=== PATIENT | male | born 1970 | race African-American/Black ===

== ENCOUNTER 2025-01-10 13:31 | Emergency (ER) | payer SELFPAY ==
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
[2025-01-10 13:33] VITALS: BP 169/93; PULSE 88; RESP 16; TEMP 36.4; O2SAT 100
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
--- OUTSIDE RECORDS SUMMARY | 2025-01-11 12:42 | XMS_ITS | Clinical Summary ---
Author Organization [facility] Address [address] [place] [address] Care Team Providers Care Lead Python Developer Name Role Phone Niki Green FIELD RADIO OPERATOR Primary Care Provider [phone] Allergies Active Allergy Reactions Criticality Noted Date Comments Seasonal Runny Nose 03/28/2024 Medications Na sulfate-K sulfate-Mg sulfate (SUPREP BOWEL PREP KIT) 17.5-3.13-1.6 GM/177ML SolutionIndicatio ns:Screening for colon cancer Take 177 mLs by mouth every 12 (twelve) hours. Per GI instructions 354 mL Active Additional Information Patient not taking.Reported on 06/28/2024 empagliflozin (JARDIANCE) 25 MG tabletIndications :Type 2 diabetes mellitus with hyperglycemia, without long-term current use of insulin ([facility]) Take 1 tablet (25 mg total) by mouth daily. 30 tablet 2 Active Additional Information Patient not taking.Reported on 06/28/2024 pravastatin (PRAVACHOL) 40 MG tabletIndications :Mixed hyperlipidemia Take 1 tablet (40 mg total) by mouth nightly at bedtime. 30 tablet 2 025 Active semaglutide (RYBELSUS) 7 MG tabletIndications :Diabetes Mellitus Take 1 tablet (7 mg total) by mouth every morning before breakfast. Indications: Diabetes 30 tablet 1 025 Active semaglutide (RYBELSUS) 3 MG tabletIndications :Diabetes Mellitus Take 1 tablet (3 mg total) by mouth every morning before breakfast. Indications: Diabetes 30 min before breakfast with a small sip of water. 30 tablet 1 025 Active metFORMIN ER (GLUCOPHAGE-XR) 500 MG 24 hr tabletIndications :Type 2 diabetes mellitus with hyperglycemia, without long-term current use of insulin (CMS/HCC HHS/HCC) Take 2 tablets by mouth twice daily 360 tablet 025 Active losartan (COZAAR) 25 MG tabletIndications :Primary hypertension Take 1 tablet by mouth once daily 30 tablet 025 Active losartan (COZAAR) 25 MG tabletIndications :Primary hypertension Take 1 tablet by mouth once daily 30 tablet 025 2024 Discontinued Active Problems Problem Noted Date Diagnosed Date Hyperkalemia 06/28/2024 Primary hypertension 03/28/2024 Type 2 diabetes mellitus wit hout complication, without long-term current use of insulin 03/28/2024 Mixed hyperlipidemia 03/28/2024 Acute gout, unspecified cause, unspecified site 03/28/2024 Resolved Problems Problem Noted Date Diagnosed Date Resolved Date Screening for colon cancer 04/10/2024 0 04/17/2024 Statin intolerance 03/29/2024 Encounters Date Type Department Care Team Description 10/16/2024 Telephone [facility] - [address] [place] [address] Stephane Bird MD Question from Last 3 Months Family History Medical History Relation Comments Arthritis Father Heart Disease Father Hypertension Father Cancer Maternal Grandmother unknown cau se at 89 Depression Mother Diabetes Mother Relation Status Comments Father Maternal Grandmother Mother Social History Tobacco Use Types Packs/Day Years Used Date Smoking Tobacco: Never Passive Smoke Exposure: Never Smokeless Tobacco: Never Tobacco Cessation:Counseling Given: No Alcohol Use Standard Drinks/Week Comments Yes 4 (1 standard drink = 0.6 oz pure alcohol) I have approximately 4 drinks a week PHQ-2 Answer Date Recorded Patient Health Questionnaire-2 Score 0 04/07/2024 Sex and Gender Information Value Date Recorded Sex Assigned at Male 06/28/2024 8:31 AM CDT Legal Sex Male 4:04 PM INFLATED BALL MOLDER Gender Identity Male 06/28/2024 8:31 AM CDT Sexual Orientation Not on file Last Filed Vital Signs Vital Sign Reading Time Taken Comments Blood Pressure 138/84 06/28/2024 9:19 AM CDT Pulse 83 06/28/2024 8:29 AM CDT Temperature 36.8 C (98.3 F) 06/28/2024 8:29 AM CDT Respiratory Rate 18 06/28/2024 8:29 AM CDT Oxygen Saturation 100% 06/28/2024 8:29 AM CDT Inhaled Oxygen Concentration - - Weight 107.6 kg (237 lb 3.2 oz) 06/28/2024 8:29 AM CDT Height 193 cm (6' 4) 06/28/2024 8:29 AM CDT Body Mass Index 28.87 06/28/2024 8:29 AM CDT Plan of Treatment Health Maintenance Due Date Last Done Comments Colorectal Cancer Screening Colonoscopy (10 Years) 1971 Diabetes: Retinopathy Eye Exam 1989 Hepatitis B Vaccines (1 of 3 - 19+ 3-dose series) 1990 Pneumococcal Vaccine: 50+ Years (1 of 2 - PCV) 1990 Zoster Vaccines (1 of 2) 2021 Hemoglobin A1C 09/27/2024 06/28/2024, 03/09, 03/24/2023, Additional history exists COVID-19 Vaccine (1 - 2024- season) 2024 Influenza Adult (#1) 2024 Kidney Health Evaluation 03/28/2025 03/28/2024 Lipid Panel 03/28/2025 03/28/2024 Annual Physical 06/28/2025 06/28/2024 DTaP, Tdap and Td Vaccines (1 - Tdap) 03/08/2029 Postponed from 1990 (Per Provider Recommendation) Hepatitis C Completed 03/28/2024 PHQ-2 (Physician [place]) Completed 04/07/2024 Hepatitis A Vaccines Aged Out No long er eligible based on patient's age to complete this topic Meningococcal B Vaccine Aged Out No l onger eligible based on patient's age to complete this topic Meningococcal Vaccine Aged Out No ching rashmi eligible based on patient's age to complete this topic RSV Immunizations Under 20 Months Aged Out No longer eligible based on patient's age to complete this topic Procedures Procedure Name Priority Date/Time Associated Diagnosis Comments HEMOGLOBIN, GLYCOSYLATED Routine 06/28/2024 Type 2 diabetes mellitus with hyperglycemia, without long-term current use of insulin (CMS/HCC HHS/HCC) LIPID PANEL Routine 03/28/2024 12:09 PM INFLATED BALL MOLDER Examination, medical, general HEPATITIS PANEL,ACUTE Routine 03/28/2024 12:08 PM INFLATED BALL MOLDER Screening examination for STD (sexually transmitted disease) from Last 3 Months or Most Recently Relevant to Health Maintenance Results * (ABNORMAL) HEMOGLOBIN, GLYCOSYLATED (06/28/2024) HGB A1C 12.1 % -[address], [place] 06/28/2024 us Niki Green NP LABORATORY Final Resul t -[address], [place] [address] [facility] [address] [place] [address], * (ABNORMAL) LIPID PANEL (03/28/2024 12:09 PM INFLATED BALL MOLDER) CHOLESTEROL 263(H) <200 MG/DL 03/29/2024 10:39 AM [facility] TRIGLYCERIDES 211(H) <150 MG/DL 03/29/2024 10:39 AM [facility] HDL 48 >40 MG/DL 03/29/2024 10:39 AM [facility] LDL-C 173(H) <100 MG/DL 03/29/2024 10:39 AM [facility] VLDL CALCULATION 42(H) 5 - 28 MG/DL 03/29/2024 10:39 AM [facility] CHOL/HDL RATIO 5.5(H) 0.0 - 4.0 03/29/2024 10:39 AM [facility] LDL/HDL 3.6(H) 0.41 - 2.13 03/29/2024 10:39 AM [facility] NON HDL CHOLESTEROL 215(H) <140 MG/DL 03/29/2024 10:39 AM INFLATED BALL MOLDER [facility] [place] 03/28/2024 12:0 9 PM INFLATED BALL MOLDER Niki Green NP LABORATORY Final Resul t Performing Organization Address City/[facility]/ZIP Co de Phone Number [facility] [place] [address] [facility] [place] [address], [place] [phone] * HEPATITIS PANEL,ACUTE (03/28/2024 12:08 PM INFLATED BALL MOLDER) HEPATITIS B SURFACE AG NON-REACT PRETTY NON-REACT PRETTY 03/30/2024 8:54 PM INFLATED BALL MOLDER [facility] Comment:HBsAg NOT DETECTED. HEP B CORE IGM NON-REACT PRETTY NON-REACT PRETTY 03/30/2024 8:54 PM INFLATED BALL MOLDER [facility] Comment: IgM ANTI HBc NOT DETECTED. DOES NOT EXCLUDE THE POSSIBILITY OF EXPOSURE TO OR INFECTION WITH HBV. NO RETEST REQUIRED. HIGH DOSES OF BIOTIN MAY INTERFERE WITH THIS TEST RESULT. CORRELATION TO CLINICAL HISTORY AND PRESENTATION RECOMMENDED. HAV IGM NON-REACT PRETTY NON-REACT PRETTY 03/30/2024 8:54 PM INFLATED BALL MOLDER [facility] Comment: IgM ANTI HAV NOT DETECTED. DOES NOT EXCLUDE THE POSSIBILITY OF EXPOSURE TO OR INFECTION WITH HAV. LEVELS OF IgM ANTI HAV MAY BE BELOW THE CUTOFF IN EARLY INFECTION. HEPATITIS C AB NON-REACT PRETTY NON-REACT PRETTY 03/30/2024 8:54 PM INFLATED BALL MOLDER [facility] Comment: ANTIBODIES TO HCV NOT DETECTED. DOES NOT EXCLUDE THE POSSIBILITY OF EXPOSURE TO HCV. 03/28/2024 12:0 8 PM INFLATED BALL MOLDER Niki Green NP LABORATORY Final Resul t [facility] [address] [place] [address], [place] [phone] [id number] from Last 3 Months or Most Recently Relevant to Health Maintenance Care Teams Lead Python Developer Relationship Specialty Start Date End Date Niki Green, FIELD RADIO OPERATOR [address] [facility] [address] [place] [address] PCP - General NURSE PRACTITIONER 03/22/24
--- OUTSIDE RECORDS SUMMARY | 2025-01-11 12:42 | XMS_ITS | Clinical Summary ---
Author Organization [facility] [employer] Address [address] [facility] [place] [address] Care Team Providers Care Cement Tile Maker Name Role Phone David Robles MD Primary Care Provider [phone] Source Comments [facility] [employer],non-owned Affiliates and Associated Physician Practices is amultiple site organization consisting of ambulatory clinics and hospital sitesin [place], [place], [place] and [place]. This disclosure is being madepursuant to the Care Everywhere program and may not contain all information available regarding this patient. Last updated 17.[facility] [employer] Allergies No known active allergies Medications * Be aware that medications may not be up to date on this document. Alwaysverify current medications with the patient. amLODIPine (Norvasc) 5 MG tablet 01/22/2022 Active atorvastatin (Lipitor) 20 MG tablet 01/22/2022 Active metFORMIN (Glucophage) 850 MG tablet Take 1,000 mg by mouth 2 times daily 01/05/2022 Active metoprolol succinate XL 24hr (Toprol XL) 25 MG tablet Take 1 (one) tablet by mouth once daily Active polyethylene glycol (GaviLyte-G) 236 g solution Drink half of prep solution at 5pm the night before colonoscopy. Finish the prep at 4am the day of test. 4000 mL 04/21/2023 Active Active Problems Problem Noted Date Diagnosed Date Primary hypertension 01/26/2022 Type 2 diabetes mellitus wit hout complication, without long-term current use of insulin 01/26/2022 Dyslipidemia 01/26/2022 Social History Tobacco Use Types Packs/Day Years Used Date Smoking Tobacco: Never Smokeless Tobacco: Never Tobacco Cessation:Counseling Given: Not Answered Alcohol Use Standard Drinks/Week Comments Not Asked 0 (1 standard drink = 0.6 oz pur e alcohol) Sex and Gender Information Value Date Recorded Sex Assigned at Not on file Legal Sex Male 5:10 AM DESIGN ENGINEER MARINE EQUIPMENT Gender Identity Not on file Sexual Orientation Not on file Last Filed Vital Signs Vital Sign Reading Time Taken Comments Blood Pressure 160/100 05/06/2022 10:06 AM DESIGN ENGINEER MARINE EQUIPMENT Pulse 80 05/06/2022 10:06 AM DESIGN ENGINEER MARINE EQUIPMENT Temperature - - Respiratory Rate 16 03/25/2022 10:14 AM DESIGN ENGINEER MARINE EQUIPMENT Oxygen Saturation 99% 05/06/2022 10:06 AM DESIGN ENGINEER MARINE EQUIPMENT Inhaled Oxygen Concentration - - Weight 107 kg (236 lb) 05/06/2022 10:06 AM DESIGN ENGINEER MARINE EQUIPMENT Height 193 cm (6' 4) 05/06/2022 10:06 AM DESIGN ENGINEER MARINE EQUIPMENT Body Mass Index 28.73 05/06/2022 10:06 AM DESIGN ENGINEER MARINE EQUIPMENT Plan of Treatment Health Maintenance Due Date Last Done Comments COLOGUARD (AGES 45-75) - COL ON CA SCREENING 1971 COLON MONITORING 1971 COLONOSCOPY - COLON CA SCREENING 1971 CT COLONOGRAPHY - COLON CA SCREENING 1971 Colorectal Cancer Screening 1971 FIT - COLON CA SCREENING 1971 FLEX SIG - COLON CA SCREENING 1971 HIV SCREENING 1986 HEPATITIS C SCREENING 03/29/1989 DTAP/TDAP/TD VACCINES (1 - Tdap) 1990 HEPATITIS B VACCINE (1 of 3 - 19+ 3-dose series) 1990 PNEUMOCOCCAL VACCINE 50+ (1 of 2 - PCV) 1990 ZOSTER VACCINE (1 of 2) 2021 DIABETES RETINOPATHY SCREENING 01/26/2022 DIABETES-FOOT EXAM WITH MONOFILAMENT 01/26/2022 DIABETES-HGB A1C 01/26/2022 DIABETES-SERUM CREATININE 04/09/2023 04/09/2022 DEPRESSION SCREENING 03/08/2024 DIABETES - URINE PROTEIN SCREENING 03/08/2024 COVID-19 VACCINE (1 - 2023-2 5 season) 2024 INFLUENZA VACCINE (#1) 2024 HIB VACCINE Aged Out No longer eligi ble based on patient's age to complete this topic HPV VACCINE Aged Out No longer eligi ble based on patient's age to complete this topic MENINGOCOCCAL (Group B) VACC INE SHARED DECISION-MAKING Aged Out No longer eligibl e based on patient's age to complete this topic MENINGOCOCCAL GROUPS A/C/Y/W VACCINE Aged Out No longer eligible b ased on patient's age to complete this topic Procedures Procedure Name Priority Date/Time Associated Diagnosis Comments CREATININE - POCT INTERFACED Routine 04/09/2022 12:18 PM DESIGN ENGINEER MARINE EQUIPMENT from Last 3 Months or Most Recently Relevant to Health Maintenance Results * CREATININE - POCT INTERFACED (04/09/2022 12:18 PM DESIGN ENGINEER MARINE EQUIPMENT) Pathologist [facility] Creatinine POCT 0.65 0.30 - 1.30 mg/dL 04/09/2022 4:31 PM DESIGN ENGINEER MARINE EQUIPMENT [facility] eGFR >90 >90 mL/min/1.7 3 m2 04/09/2022 4:31 PM DESIGN ENGINEER MARINE EQUIPMENT [facility] Blood BLOOD SPECIMEN / Unknown 04/09/2022 12:18 PM DESIGN ENGINEER MARINE EQUIPMENT 04/09/2022 4:31 PM DESIGN ENGINEER MARINE EQUIPMENT Judy Allison METAL FURNITURE ASSEMBLY SUPERVISOR-PEOPLE GREETER LAB - POINT OF CARE OR DERABLES Final Result Performing Organization Address [facility]/State/[facility] Co de Phone Number [facility] [address] [place] [address], [facility] [phone] from Last 3 Months or Most Recently Relevant to Health Maintenance Insurance [facility] Address: [facility] [address] Care Teams Cement Tile Maker Relationship Specialty Start Date End Date David Robles MD [address] [facility] [address] [place] [address] PCP - General 10/01/21
--- OUTSIDE RECORDS SUMMARY | 2025-01-11 12:42 | XMS_ITS | Patient Health Record ---
[facility] Organization [facility] Address [address] [place] [id number] Care Team Providers Care Barrel Reamer Name Role Phone Barb Rosales Primary Care Provider CometHagenIvis Unavailable [phone] Allergies No Known Allergies Reason For Referral Reason PT WITH UNCONTROLLED DM2 Diagnosis 1 Type 2 diabetes myesha itus with hyperglycemia, without long-term current use of insulin (E11.65) Referral Organization [facility] Referring Provider First Name Barb Referring Provider Last Name Bobby Referring Provider Speciality Internal M edicine Referred Provider Specialty Diabetologis t General Notes Thi Garay 2024 03:39:08 PM >referral for rx purposes Referral Priority Routine Medications Medication SIG (Take, Route, Frequency, Duration) Notes Start Date End Date Status Trulicity 1.5 MG/0.5ML as directed 15 MIN BEFORE BREAKFAST Subcutaneous ONCE A WEEK; Duration: 30 days Not-Taking Farxiga 5 MG TAKE 1 TABLET BY MOUTH ONCE A DAY; Duration: 30 Not-Taking amLODIPine Besylate 5 MG TAKE 1 TABLET BY MOUTH ONCE A DAY Oral Once a day; Duration: 30 days Active metFORMIN HCl ER 500 MG 2 tablets with evening meal, STOP 750MG DOSE Orally Once a day; Duration: 90 days Active metFORMIN HCl 1000 MG TAKE 1 TABLET BY MOUTH WITH MEALS TWO TIMES A DAY; Duration: 30 Active Lipitor 40 MG 1 tablet, STOP 20 MG DOSE Oral 1 every bedtime; Duration: 90 days Active Farxiga 10 MG 1 tablet, STOP 5MG DOSE Orally Once a day; Duration: 30 days Active Lantus SoloStar 100 UNIT/ML 10 units Subcutaneous daily; Duration: 90 days 04/07/2023 Active Norvasc 10 MG 1 tablet, STOP 5MG DOSE Oral once a day; Duration: 90 days Active Cimetidine 400 MG 1 tablet Orally Twice a day; Duration: 30 day(s) Active Contour Test - as directed In Vitro 3 times a day; Duration: 30 days Please dispense as covered by insurance 07/15/2022 Active Metoprolol Succinate ER 25 MG TAKE 1 TABLET BY MOUTH ONCE DAILY. Orally Once a day; Duration: 90 days Active Social History Tobacco Use: Social History Observation Description Date Details (start date - stop date) Never Smoker NA - NA Sex Assigned At : Social History Observation Description Sex Assigned At Male Tobacco Use/Smoking Question Answer Notes Are you a: never smoker Tobacco use other than smoking: Question Answer Notes Are you an other tobacco user? No SBIRT (2018 Edition) Question Answer Notes Patient refused/declined SBIRT screening at this time? No Interpretation Positive Total Count Marijuana Daily How many times in the past y ear have you used an illegal drug or used a prescription medication for non-medical reasons? 1 or more Interpretation Negative SCORE 3 2. How many drinks containin g alcohol do you have on a typical day when you are drinking? 1 or 2 1. How often do you have a drink containing alco hol? 2-3 times a week Problems Problem Type SNOMED Code ICD Code Onset Dates Problem Status W/U Status Risk Notes Problem Hypertensive retinopathy (7501598) Hypertensive retinopathy, bilateral (H35.033) Active confirmed Problem Acquired hallux valgus (71915655) Hallux valgus (acquired), unspecified foot (M20.10) Active confirmed Problem Hammer toe (519746536) Other hammer toe(s) (acquired), unspecified foot (M20.40) Active confirmed Problem Acquired deformity of foot (216284596818932) Other acquired deformities of unspecified foot (M21.6X9) Active confirmed Problem Sexually transmitted infectious disease (5686502) Encounter for screening for infections with a predominantly sexual mode of transmission (Z11.3) Active confirmed Problem Moderate nonproliferative retinopathy due to type 2 diabetes mellitus (303550654100036) Type 2 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 ADD LANTUS. PT WAS NOT ABLE TO AFFORD COST OF TRULICITY. Problem Hyperlipidaemia (83452860) Hyperlipidemia, unspecified hyperlipidemia type (E78.5) Active confirmed Problem Tachycardia (4246425) Tachycardia (R00.0) Active confirmed Problem Essential hypertension (16611129) Hypertension, unspecified type (I10) Active confirmed Problem Exposure to sexually transmissible disorder (490484539) Trichomonas contact (Z20.2) Active confirmed Encounters Encounter Location Date Provider Diagnosis [facility] [address] [place] [id number] 07/10/2024 Barb Rosales Type 2 diabetes mellitus with hyperglycemia, without long-term current use of insulin E11.65 Assessments Encounter Date Diagnosis (ICD Code) Assessment Notes Treatment Notes Treatment Clinical Notes Section Notes 07/10/2024 Type 2 diabetes mellitus with hyperglycemia, without long-term current use of insulin (ICD-10 - E11.65) A1C= 10.6, last A1C=8.2, CONT FARXIGA, AND METFORMIN ER. ADD LANTUS. PT WAS NOT ABLE TO AFFORD COST OF TRULICITY. Plan Of Treatment Pending Test Test Name Order Date Fecal Globin by Immunochemistry (IFOBT) [id number] 03/18/2022 Fecal Globin by Immunochemistry (IFOBT) [id number] 09/04/2021 Insurance Providers Payer Name Payer Address Payer Phone Subscriber Number Group Number Insured Name Patient Relationship to Insured Coverage Start Date Coverage End Date (NOT ACCEPTED) [facility] cisimplesaint henry Anonymous You [address] [place] [address] [id number] Chencho Voss Self - patient is the insured Min Pay 100 Adj (Inactive 2022) [address] [place] [phone] [id number] Chencho Voss Self - patient is the insured 4 5 [employer] [address] [place] [address] [id number] Chencho Voss Self - patient is the insured DENTAL [facility] Dental Plan [address] [address] [place] [address] [id number] Chencho Voss Self - patient is the insured Medical (General) History Medical History History ICD Code Type 2 diabetes mellitus with hyperglyce mine E11.65 Essential (primary) hypertension I10 Hyperlipidemia, unspecified E78.5
--- OUTSIDE RECORDS SUMMARY | 2025-01-11 12:42 | XMS_ITS | Encounter Summary ---
Author Organization [facility] Address [address] [place] [address] Care Team Providers Care Well Reactivator Operator Name Role Phone Niki Green IMPLEMENTATION MANAGER Primary Care Provider [phone] Encounter Details Date Type Department Care Team (Latest Contact Info) Description 08/08/2024 Taste Kitchent Message Enc [facility] Medical Group Multispecialty Care - [place] [address] [place] [address] Niki Green NP [address] [place] [address] Bleeding behind the right eye Social History Tobacco Use Types Packs/Day Years Used Date Smoking Tobacco: Never Passive Smoke Exposure: Never Smokeless Tobacco: Never Alcohol Use Standard Drinks/Week Comments Yes 4 (1 standard drink = 0.6 oz pure alcohol) I have approximately 4 drinks a week PHQ-2 Answer Date Recorded Patient Health Questionnaire-2 Score 0 04/07/2024 Sex and Gender Information Value Date Recorded Sex Assigned at Male 06/28/2024 8:31 AM CDT Legal Sex Male 4:04 PM MOVIE PROJECTIONIST Gender Identity Male 06/28/2024 8:31 AM CDT Sexual Orientation Not on file documented as of this encounter Plan of Treatment Not on file documented as of this encounter Visit Diagnoses Not on filedocumented in this encounter Additional Health Concerns Assessment Noted Time PHQ-9 Depression Total Score: 0 04/07/19 25 11:34 AM MOVIE PROJECTIONIST documented as of this encounter Care Teams Well Reactivator Operator Relationship Specialty Start Date End Date Niki Green NP [address] [place] [address] PCP - General NURSE PRACTITIONER 03/22/24 documented as of this encounter
--- OUTSIDE RECORDS SUMMARY | 2025-01-11 12:42 | XMS_ITS | Encounter Summary ---
Author Organization [facility] Address [address] [place] [address] Care Team Providers Care Pairer Substandard Name Role Phone Niki Green CLAY PRESS OPERATOR Primary Care Provider [phone] Encounter Details Date Type Department Care Team (Latest Contact Info) Description 04/05/2024 Switchflyt Message Enc [facility] Medical Group Multispecialty Care - [place] 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 Question Answer Date of Assessment Author Status Little interest or pleasure in doing things Not at all 04/07/2024 11:34 AM Billy Gore MA Active Feeling down, depressed, or hopeless Not at all 04/07/2024 11:34 AM Mazin Gore MA Active Patient Health Questionnaire-2 Score 0 04/07/2024 11:34 AM Don Gore MA Active * Question Answer Date of Assessment Author Status Trouble falling or staying asleep, or sleeping too much Not at all 04/07/2024 11:34 AM Vandana Gore MA Active Feeling tired or having little energy Not at all 04/07/2024 11:34 AM Vandana Gore MA Active Poor appetite or overeating Not at all 04/07/2024 11:34 AM Vandana Gore MA Active Feeling bad about yourself - or that you are a failure or have let yourself or your family down Not at all 04/07/2024 11:34 AM Vandana Gore MA Active Trouble concentrating on things, such as reading the newspaper or watching television Not at all 04/07/2024 11:34 AM Vandana Gore MA Active Moving or speaking so slowly that other people could have noticed? Or the opposite - being so fidgety or restless that you have been moving around a lot more than usual. Not at all 04/07/2024 11:34 AM Vandana Gore MA Active Thoughts that you would be better off or hurting yourself in some way Not at all 04/07/2024 11:34 AM Vandana Gore MA Active Patient Health Questionnaire-9 Score 0 04/07/2024 11:34 AM Vandana Gore MA Active * If you checked off any problems on this questionnaire so far, Question Answer Date of Assessment Author Status How difficult have these problems made it for you to do your work, take care of things at home, or get along with other people? Not difficult at all 04/07/2024 11:34 AM Vandana Gore MA Active documented as of this encounter Plan of Treatment Not on file documented as of this encounter Visit Diagnoses Diagnosis Primary hypertension- Primary Unspecified essential hypertension documented in this encounter Care Teams Pairer Substandard Relationship Specialty Start Date End Date Niki Green NP [address] [facility] [address] [place], [place] [id number] PCP - General NURSE PRACTITIONER 03/22/24 documented as of this encounter
--- OUTSIDE RECORDS SUMMARY | 2025-01-11 15:10 | XMS_ITS | Encounter Summary ---
Author Organization [facility] Address [address] [place] [address] Care Team Providers Care Winchman/Crane Operator Name Role Phone Niki Green PARKING LOT ATTENDANT AND CASHIER Primary Care Provider [phone] Encounter Details Date Type Department Care Team (Latest Contact Info) Description 08/08/2024 Fooalat Message Enc [facility] Medical Group Multispecialty Care - [place] [address] [place] [address] Niki Green NP [address] [place] [address] Bleeding behind the right eye Social History [...] AM CDT Legal Sex Male 4:04 PM PRODUCT SUPPORT REP Gender Identity Male 06/28/2024 8:31 AM CDT Sexual Orientation Not on file documented as of this encounter Plan of Treatment Not on file documented as of this encounter Visit Diagnoses Not on filedocumented in this encounter Additional Health Concerns Assessment Noted Time PHQ-9 Depression Total Score: 0 04/07/19 25 11:34 AM PRODUCT SUPPORT REP documented as of this encounter Care Teams Winchman/Crane Operator Relationship Specialty Start Date End Date Niki Green NP [address] [place] [address] PCP - General NURSE PRACTITIONER 03/22/24 documented as of this encounter
--- OUTSIDE RECORDS SUMMARY | 2025-01-11 15:10 | XMS_ITS | Clinical Summary ---
Author Organization [facility] Address [address] [place] [address] Care Team Providers Care Director Of Estate Name Role Phone Niki Green RISK CONSULTING TREASURY DIRECTOR Primary Care Provider [phone] Allergies Active Allergy Reactions Criticality Noted Date [...] hyperglycemia, without long-term current use of insulin ([facility]) Take 1 tablet (25 mg total) by [...] Type Department Care Team Description 10/16/2024 Telephone [facility] Medical Group Multispecialty Care - [address] [place] [address] Stephane Bird MD Question from [...] AM CDT Legal Sex Male 4:04 PM UNDERCUTTER Gender Identity Male 06/28/2024 8:31 AM CDT [...] Recommendation) Hepatitis C Completed 03/28/2024 PHQ-2 (Physician [place]) Completed 04/07/2024 Hepatitis A Vaccines Aged Out [...] HHS/HCC) LIPID PANEL Routine 03/28/2024 12:09 PM UNDERCUTTER Examination, medical, general HEPATITIS PANEL,ACUTE Routine 03/28/2024 12:08 PM UNDERCUTTER Screening examination for STD (sexually transmitted disease) from Last 3 Months or Most Recently Relevant to Health Maintenance Results * (ABNORMAL) HEMOGLOBIN, GLYCOSYLATED (06/28/2024) HGB A1C 12.1 % -[address], [place] 06/28/2024 us Niki Green NP LABORATORY Final Resul t -[address], [place] [address] [facility] [address] [place] [address], * (ABNORMAL) LIPID PANEL (03/28/2024 12:09 PM UNDERCUTTER) CHOLESTEROL 263(H) <200 MG/DL 03/29/2024 10:39 AM [facility] TRIGLYCERIDES 211(H) <150 MG/DL 03/29/2024 10:39 AM [facility] HDL 48 >40 MG/DL 03/29/2024 10:39 AM [facility] LDL-C 173(H) <100 MG/DL 03/29/2024 10:39 AM [facility] VLDL CALCULATION 42(H) 5 - 28 MG/DL 03/29/2024 10:39 AM [facility] CHOL/HDL RATIO 5.5(H) 0.0 - 4.0 03/29/2024 10:39 AM [facility] LDL/HDL 3.6(H) 0.41 - 2.13 03/29/2024 10:39 AM [facility] NON HDL CHOLESTEROL 215(H) <140 MG/DL 03/29/2024 10:39 AM [facility] 03/28/2024 12:0 9 PM UNDERCUTTER Niki Green NP LABORATORY Final Resul t Performing Organization Address City/[facility]/ZIP Co de Phone Number [facility] [place] [address] [place] [address], [place] [phone] * HEPATITIS PANEL,ACUTE (03/28/2024 12:08 PM UNDERCUTTER) HEPATITIS B SURFACE AG NON-REACT PRETTY NON-REACT PRETTY 03/30/2024 8:54 PM UNDERCUTTER [facility] Comment:HBsAg NOT DETECTED. HEP B CORE IGM NON-REACT PRETTY NON-REACT PRETTY 03/30/2024 8:54 PM UNDERCUTTER [facility] Comment: IgM ANTI HBc NOT DETECTED. DOES NOT EXCLUDE THE POSSIBILITY OF EXPOSURE TO OR INFECTION WITH HBV. NO RETEST REQUIRED. HIGH DOSES OF BIOTIN MAY INTERFERE WITH THIS TEST RESULT. CORRELATION TO CLINICAL HISTORY AND PRESENTATION RECOMMENDED. HAV IGM NON-REACT PRETTY NON-REACT PRETTY 03/30/2024 8:54 PM UNDERCUTTER [facility] Comment: IgM ANTI HAV NOT DETECTED. DOES NOT EXCLUDE THE POSSIBILITY OF EXPOSURE TO OR INFECTION WITH HAV. LEVELS OF IgM ANTI HAV MAY BE BELOW THE CUTOFF IN EARLY INFECTION. HEPATITIS C AB NON-REACT PRETTY NON-REACT PRETTY 03/30/2024 8:54 PM UNDERCUTTER [facility] Comment: ANTIBODIES TO HCV NOT DETECTED. DOES NOT EXCLUDE THE POSSIBILITY OF EXPOSURE TO HCV. 03/28/2024 12:0 8 PM UNDERCUTTER Niki Green NP LABORATORY Final Resul t [facility] [address] [place] [address], [place] [phone] [id number] from Last 3 Months or Most Recently Relevant to Health Maintenance Care Teams Director Of Estate Relationship Specialty Start Date End Date Niki Green, RISK CONSULTING TREASURY DIRECTOR [address] [facility] [facility] [address] [place] [address] PCP - General NURSE PRACTITIONER 03/22/24
--- OUTSIDE RECORDS SUMMARY | 2025-01-11 15:11 | XMS_ITS | Clinical Summary ---
Author Organization [facility] Address [address] [facility] [place] [address] Care Team Providers Care Human Factors Specialist Name Role Phone David Robles MD Primary Care Provider [phone] Source Comments [facility],non-owned Affiliates and Associated Physician Practices is amultiple site organization consisting of ambulatory clinics and hospital sitesin [place], [place], [place] and [place]. This disclosure is being madepursuant to the Care Everywhere program and may not contain all information available regarding this patient. Last updated 17.[facility] Allergies No known active allergies Medications * [...] on file Legal Sex Male 5:10 AM VEGETABLE CUTTER Gender Identity Not on file Sexual Orientation Not on file Last Filed Vital Signs Vital Sign Reading Time Taken Comments Blood Pressure 160/100 05/06/2022 10:06 AM VEGETABLE CUTTER Pulse 80 05/06/2022 10:06 AM VEGETABLE CUTTER Temperature - - Respiratory Rate 16 03/25/2022 10:14 AM VEGETABLE CUTTER Oxygen Saturation 99% 05/06/2022 10:06 AM VEGETABLE CUTTER Inhaled Oxygen Concentration - - Weight 107 kg (236 lb) 05/06/2022 10:06 AM VEGETABLE CUTTER Height 193 cm (6' 4) 05/06/2022 10:06 AM VEGETABLE CUTTER Body Mass Index 28.73 05/06/2022 10:06 AM VEGETABLE CUTTER Plan of Treatment Health Maintenance Due Date [...] - POCT INTERFACED Routine 04/09/2022 12:18 PM VEGETABLE CUTTER from Last 3 Months or Most Recently Relevant to Health Maintenance Results * CREATININE - POCT INTERFACED (04/09/2022 12:18 PM VEGETABLE CUTTER) Pathologist [facility] Creatinine POCT 0.65 0.30 - 1.30 mg/dL 04/09/2022 4:31 PM VEGETABLE CUTTER [facility] eGFR >90 >90 mL/min/1.7 3 m2 04/09/2022 4:31 PM VEGETABLE CUTTER [facility] Blood BLOOD SPECIMEN / Unknown 04/09/2022 12:18 PM VEGETABLE CUTTER 04/09/2022 4:31 PM VEGETABLE CUTTER Judy Allison BRAKE ENGINEER-RUBBER INSULATOR LAB - POINT OF CARE OR DERABLES Final Result Performing Organization Address [facility]/State/[facility] Co de Phone Number [facility] [address] [place] [address], [facility] [phone] from Last 3 Months or Most Recently Relevant to Health Maintenance Insurance [facility] Address: [facility] [place] [address] Care Teams Human Factors Specialist Relationship Specialty Start Date End Date David Robles MD [address] [facility] [address] [place] [address] PCP - General 10/01/21
--- OUTSIDE RECORDS SUMMARY | 2025-01-11 15:11 | XMS_ITS | Encounter Summary ---
Author Organization [facility] Address [address] [place] [address] Care Team Providers Care Extrusion Press Adjuster Name Role Phone Niki Green ASPHALT PAVER Primary Care Provider [phone] Encounter Details Date Type Department Care Team (Latest Contact Info) Description 04/05/2024 ZinMobit Message Enc [facility] Medical Group Multispecialty Care - [place] [address] [place], [place] [address] Niki Green NP [address] [place] [address] Blood pressure medicine Social History Tobacco Use [...] AM CDT Legal Sex Male 4:04 PM TRIMMING ASSEMBLER Gender Identity Male 06/28/2024 8:31 AM CDT [...] hypertension documented in this encounter Care Teams Extrusion Press Adjuster Relationship Specialty Start Date End Date Niki Green NP [address] [facility] [address] [place], [place] [address] PCP - General NURSE PRACTITIONER 03/22/24 documented as of this encounter
== END 2025-01-10 16:43 | disposition left against medical advice (07) ==
DX: M54.9 Dorsalgia, unspecified (principal)
CPT/HCPCS: 99199

== ENCOUNTER 2025-01-10 15:10 | Emergency (ER) | payer OTHER, SELFPAY ==
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
[2025-01-10 15:21] VITALS: BP 156/101; PULSE 90; RESP 16; TEMP 35.6; O2SAT 100
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
== END 2025-01-10 16:12 | disposition home or self-care (01) ==
PROVIDERS: Emergency Provider Registered Nurse
DX: S16.1XXA Strain of muscle, fascia and tendon at neck level, initial encounter (principal); S39.012A Strain of muscle, fascia and tendon of lower back, initial encounter; I10 Essential (primary) hypertension; Z79.899 Other long term (current) drug therapy; Z79.84 Long term (current) use of oral hypoglycemic drugs; V43.52XA Car driver injured in collision with other type car in traffic accident, initial encounter
CPT/HCPCS: 72100; 73030; 99204; G0463